=== PATIENT | female | born 1965 | race Caucasian/White ===

== ENCOUNTER 2017-03-02 09:16 | Emergency (ER) | payer OTHER ==
[~2017-03-02 09:16] MED LIST: ACET500T33 PO; HYDR-971 PO; ONDA4TAB7 PO
[2017-03-02] MEDS ORDERED: IV NORMAL SALINE 50ML 50 ML ONE (09:45)
[2017-03-02] MEDS ORDERED: cefTRIAXone SODIUM 1 GM VIAL IV ONE (09:46)
--- NOTE | 2017-03-02 09:48 | PHYS DOC ---
General Chief Complaint: FLANK PAIN Stated Complaint: FLANK PAIN Time Seen by MD: 09:35 Source: patient Exam Limitations: no limitations Problems: History of Present Illness Initial Comments Patient is a 51-year-old female who comes to the ED complaining of kidney stones. Patient states she has history of kidney stones, she states in the past they've been so large that required lithotripsy and basket retrieval. She follows with Dr. Leach, symptoms began this morning and have progressively worsened. Currently they're described as moderate at baseline with intermittent exacerbations to severe. Described as severe and crampy she denies urinary symptoms nausea or vomiting and no bowel changes. No fever chills sweats or myalgias no pre-arrival treatment. Timing/Duration: 1-3 hours Severity: moderate Modifying Factors: improves with other Associated Symptoms: other Allergies: Coded Allergies: codeine (Verified Adverse Reaction, Severe, Nausea and Vomiting, 06/08/15) Past Medical History Medical History: other (kidney stones, ovarian cyst) Surgical History: other (cholecystectomy, section, lithotripsy) Family History Significant Family History: no pertinent family hx Social History Smoker: non-smoker Alcohol: occasionally Drugs: none Review of Systems Constitutional: denies chills, denies diaphoresis, denies fever Respiratory: denies cough, denies shortness of breath Cardiovascular: denies chest pain, denies palpitations Gastrointestinal: see HPI, denies diarrhea, nausea, denies vomiting Genitourinary: see HPI Musculoskeletal: see HPI Psychiatric/Neurological: denies headache, denies numbness, denies paresthesia Physical Exam General Appearance: WD/WN, moderate distress Ear, Nose, Throat: hearing grossly normal, normal ENT inspection Neck: non-tender, supple Respiratory: normal breath sounds, no respiratory distress Cardiovascular: normal peripheral pulses, no edema Gastrointestinal: normal bowel sounds, non tender, soft Back: no CVA tenderness, no vertebral tenderness Extremities: normal range of motion, non-tender, normal inspection 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 CT is pending. PATIENT: JAISON DOMINGUEZ ACCOUNT: [id number] : 1965 LOCATION: ER AGE: 51 SEX: F EXAM STATUS: REG ER ORD. PHYSICIAN: ALEISHA LECHUGA DO REASON: L renal colic h/o stones PROCEDURE: CT ABDOMEN PELVIS WO CONTRAST Indication left flank pain. Axial images through the abdomen and pelvis were obtained. Examination was tailored for the detection of renal and/or ureteral calculi. Note is made of a previous exam 11/22/2015. The lung bases are clear. The liver and spleen appear unremarkable. Clips are noted in the gallbladder fossa. No adrenal pathology is seen and the pancreas appears unremarkable. There are single bilateral intrarenal calculi each measuring approximately 3 to 4 mm in greatest dimension. On the left there is mild hydronephrosis and hydroureter to the level of a 2 mm calculus in the mid portion of the ureter opposite the L4 vertebral body. No additional finding is seen in the abdomen or pelvis. IMPRESSION: 2 mm calculus in the mid left ureter with associated mild obstructive uropathy. Intrarenal calculi are additionally noted. PQRS Compliance Statement: One or more of the following individualized dose reduction techniques were utilized for this examination: 1. Automated exposure control 2. Adjustment of the mA and/or kV according to patient size 3. Use of iterative reconstruction technique DICTATED AND SIGNED BY: KEVIN ALAS MD DATE: 03/02/17 1023 CC: [facility]; ALEISHA LECHUGA DO ~ Labs unremarkable, urinalysis positive for blood zero evidence for possible infection. 1049: Patient rechecked, she reports that her pain is fully controlled. She does feel loopy but is pain free. She has a friend with her and I explained the departure instructions to both of them. She needs to follow-up at [facility] today or tomorrow to obtain urology referral has [facility] will not allow me to refer. They expressed agreement and understanding with the treatment plan see the departure instructions. Departure Time of Disposition: 10:44 Disposition: 01 HOME, SELF-CARE Diagnosis: 2mm L ureterolithiasis with hydronephrosis Condition: STABLE Patient Instructions: Kidney Stones, [id number] Additional Instructions: No driving or operating machinery while under the influence of sedative pain medications. Aggressive hydration to prevent dehydration. Pysi-mum-tgebtuq ibuprofen for baseline discomfort. Prescription: [place] 7.5 mg quantity 30, Flomax, Zofran ODT Take [place] with food to avoid GI upset. Take gpye-ksw-gydikpe stool softeners and increase fluids to avoid opiate associated constipation. [facility]-up [facility] today or tomorrow for urology referral. Return to the ED with new or changing symptoms. ALEISHA LECHUGA DO Mar 02, 2017 09:48
[2017-03-02] MEDS ORDERED: KETOROLAC 30 MG/ML VIAL. IV ONE (10:00)
[2017-03-02] MEDS ORDERED: HYDROmorphone PF 1 MG/ML DISP.SYRIN IV/SQ PRN (10:00)
[2017-03-02] MEDS ORDERED: ONDANSETRON PF 4 MG/2 ML VIAL. IV ONE (10:00)
[2017-03-02 10:08] LABS: BACTERIA,URINE 0 /HPF (0-FEW); BILIRUBIN,URINE NEG (NEG); CLARITY,URINE CLEAR; COLOR,URINE STRAW; GLUCOSE,URINE NEG (NEG); NITRITE,URINE NEG (NEG); RBC,URINE 0 /HPF (0-2); SQUAMOUS EPITHELIAL CELL,UR MOD /LPF; UROBILINOGEN,URINE 0.2 mg/dL (0.2 mg/dL); WBC,URINE 0 /HPF (0-4)
[2017-03-02 10:24] LABS: BASO # 0.1 x10^3/uL (0.0-0.2); BASO % 1 % (0-3); EOS # 0.1 x10^3/uL (0.0-0.7); EOS % 2 % (0-3); HEMATOCRIT 40.2 % (36.0-47.0); HEMOGLOBIN 13.9 g/dL (12.0-15.5); LYMPH # 1.8 x10^3/uL (1.0-4.8); LYMPH % 34 % (24-48); MEAN CORPUSCULAR HEMOGLOBIN 31 pg (25-35); MEAN CORPUSCULAR HGB CONC 35 g/dL (31-37); MEAN CORPUSCULAR VOLUME 90 fL (79-100); MONO # 0.3 x10^3/uL (0.0-1.1); MONO % 6 % (0-9); NEUT % 57 % (31-73); PLATELET COUNT 347 x10^3/uL (140-400); RED BLOOD COUNT 4.45 x10^6/uL (3.50-5.40); RED CELL DISTRIBUTION WIDTH 14.5 % (11.5-14.5); WHITE BLOOD COUNT 5.4 x10^3/uL (4.0-11.0)
--- NOTE | 2017-03-02 10:31 | RAD ---
Indication left flank pain. Axial images through the abdomen and pelvis were obtained. Examination was tailored for the detection of renal and/or ureteral calculi. Note is made of a previous exam 11/22/2015. The lung bases are clear. The liver and spleen appear unremarkable. Clips are noted in the gallbladder fossa. No adrenal pathology is seen and the pancreas appears unremarkable. There are single bilateral intrarenal calculi each measuring approximately 3 to 4 mm in greatest dimension. On the left there is mild hydronephrosis and hydroureter to the level of a 2 mm calculus in the mid portion of the ureter opposite the L4 vertebral body. No additional finding is seen in the abdomen or pelvis. IMPRESSION: 2 mm calculus in the mid left ureter with associated mild obstructive uropathy. Intrarenal calculi are additionally noted. PQRS Compliance Statement: One or more of the following individualized dose reduction techniques were utilized for this examination: 1. Automated exposure control 2. Adjustment of the mA and/or kV according to patient size 3. Use of iterative reconstruction technique
[2017-03-02 10:33] LABS: HEMOGLOBIN ISTAT 13.3 gm/dL
[2017-03-02] MEDS ORDERED: HYDR-965 PO (10:43)
[2017-03-02] MEDS ORDERED: ONDA4TAB10 PO (10:43)
[2017-03-02] MEDS ORDERED: TAMS0.4C97 PO (10:43)
[2017-03-02 12:30] VITALS: BP 118/79
== END 2017-03-02 11:20 | disposition home or self-care (01) ==
LOC: ER 09:16
DX: N13.2 Hydronephrosis with renal and ureteral calculous obstruction (principal); Z87.442 Personal history of urinary calculi; Z90.49 Acquired absence of other specified parts of digestive tract; Z98.890 Other specified postprocedural states; Z88.5 Allergy status to narcotic agent
CPT/HCPCS: 36415; 74176; 80047; 81001; 85025; 96365; 96375; 99285; J0696; J1170; J1885; J2405

== ENCOUNTER 2018-07-20 13:45 | Emergency (ER) | payer OTHER ==
[~2018-07-20] VITALS: Ht 157.5 cm; Wt 63.5 kg
[~2018-07-20 13:45] MED LIST changes: +HYDR-3165 PO; +HYDR-3166 PO; -HYDR-971 PO; +ONDA4TAB10 PO; +TAMS0.4C97 PO
[2018-07-20] MEDS ORDERED: IV NORMAL SALINE 1,000ML 1,000 ML IV ONE ×2 (14:05→15:00)
[2018-07-20] MEDS ORDERED: IV NORMAL SALINE 1,000 ML BAG ONE (14:05)
[2018-07-20 14:40] VITALS: BP 121/79
[2018-07-20 15:06] LABS: CALCIUM 7.6 mg/dL (8.5-10.1); CREATININE 0.7 mg/dL (0.6-1.0); GFR 88.2; POTASSIUM 3.9 mmol/L (3.5-5.1)
[2018-07-20 15:07] LABS: BASO # 0.1 x10^3/uL (0.0-0.2); BASO % 2 % (0-3); EOS # 0.1 x10^3/uL (0.0-0.7); EOS % 2 % (0-3); HEMATOCRIT 33.1 % (36.0-47.0); HEMOGLOBIN 11.2 g/dL (12.0-15.5); LYMPH # 0.6 x10^3/uL (1.0-4.8); LYMPH % 14 % (24-48); MEAN CORPUSCULAR HEMOGLOBIN 30 pg (25-35); MEAN CORPUSCULAR HGB CONC 34 g/dL (31-37); MEAN CORPUSCULAR VOLUME 89 fL (79-100); MONO # 0.3 x10^3/uL (0.0-1.1); MONO % 8 % (0-9); NEUT # 3.2 x10^3uL (1.8-7.7); NEUT % 75 % (31-73); PLATELET COUNT 293 x10^3/uL (140-400); RED BLOOD COUNT 3.74 x10^6/uL (3.50-5.40); RED CELL DISTRIBUTION WIDTH 15.3 % (11.5-14.5); WHITE BLOOD COUNT 4.2 x10^3/uL (4.0-11.0)
[2018-07-20] MEDS ORDERED: NAPR-683 PO (15:20)
--- NOTE | 2018-07-20 15:20 | PHYS DOC ---
Past History Past Medical History: No Pertinent History Past Surgical History: Colectomy, , Other Smoking: Non-smoker Alcohol Use: None Drug Use: None Adult General Chief Complaint Chief Complaint: VAGINAL BLEEDING HPI HPI Patient is a 53 year old female who presents with complaining of abnormal vaginal bleeding. Patient states she has had irregular periods for several months and had a usual menstruation 4 months ago and a short and light vaginal bleeding last month and for the last 2 weeks has had vaginal bleeding that getting a heavy for the last 4 days. Patient states she uses a pad every 2 or 3 hours and was seen at her primary care physician office today and sent to ER for more evaluation regarding abnormal vaginal bleeding and tachycardia because she does not have SR ACCOUNT EXECUTIVE at [facility] anymore. Patient denies chest pain, shortness of breath, nausea and vomiting, weight loss. She complaining of generalized weakness. Review of Systems Review of Systems Constitutional: Denies fever or chills [] Eyes: Denies change in visual acuity, redness, or eye pain [] HENT: Denies nasal congestion or sore throat [] Respiratory: Denies cough or shortness of breath [] Cardiovascular: No additional information not addressed in HPI [] GI: Denies abdominal pain, nausea, vomiting, bloody stools or diarrhea [] : Denies dysuria or hematuria . Reports abnormal vaginal bleeding[] Musculoskeletal: Denies back pain or joint pain [] Integument: Denies rash or skin lesions [] Neurologic: Denies headache, focal weakness or sensory changes [] Endocrine: Denies polyuria or polydipsia [] All other systems were reviewed and found to be within normal limits, except as documented in this note. Current Medications Current Medications Current Medications Medications (Trade) Dose Ordered Sig/Janine Start Time Stop Time Status Last Admin Dose Admin Sodium Chloride 1,000 ml @ 1,000 mls/hr 1X ONCE 07/20/18 15:00 07/20/18 15:59 07/20/18 14:03 1,000 MLS/HR Sodium Chloride (Iv Sodium Chloride 0.9% 1,000ml) 1,000 ml STK-MED ONCE 07/20/18 14:05 07/20/18 14:47 DC Allergies Allergies Allergies Coded Allergies Type Severity Reaction Last Updated Verified codeine Adverse Reaction Severe Nausea and Vomiting 06/08/15 Yes Physical Exam Physical Exam Constitutional: Well developed, well nourished, mild distress, non-toxic appearance, mild pallor. [] HENT: Normocephalic, atraumatic. Eyes: PERRLA, EOMI, conjunctiva normal, no discharge. [] Neck: Normal range of motion, no tenderness, supple, no stridor. [] Cardiovascular: Tachycardia, no murmur [] Lungs & Thorax: Bilateral breath sounds clear to auscultation [] Abdomen: Bowel sounds normal, soft, no tenderness, no masses, no pulsatile masses. [] Skin: Warm, dry, no erythema, no rash. [] Back: No tenderness, no CVA tenderness. [] Extremities: No tenderness, no cyanosis, no clubbing, ROM intact, no edema. [] Neurologic: Alert and oriented X 3, no focal deficits noted. [] Psychologic: Affect normal, judgement normal, mood normal. [] Current Patient Data Vital Signs Vital Signs Date Time Temp Pulse Resp B/P (MAP) Pulse Ox O2 Delivery O2 Flow Rate FiO2 07/20/18 14:40 98.1 111 20 99 Room Air Lab Results Laboratory Tests Test 07/20/18 14:03 White Blood Count 4.2 x10^3/uL (4.0-11.0) Red Blood Count 3.74 x10^6/uL (3.50-5.40) Hemoglobin 11.2 g/dL (12.0-15.5) L Hematocrit 33.1 % (36.0-47.0) L Mean Corpuscular Volume 89 fL (79-100) Mean Corpuscular Hemoglobin 30 pg (25-35) Mean Corpuscular Hemoglobin Concent 34 g/dL (31-37) Red Cell Distribution Width 15.3 % (11.5-14.5) H Platelet Count 293 x10^3/uL (140-400) Neutrophils (%) (Auto) 75 % (31-73) H Lymphocytes (%) (Auto) 14 % (24-48) L Monocytes (%) (Auto) 8 % (0-9) Eosinophils (%) (Auto) 2 % (0-3) Basophils (%) (Auto) 2 % (0-3) Neutrophils # (Auto) 3.2 x10^3uL (1.8-7.7) Lymphocytes # (Auto) 0.6 x10^3/uL (1.0-4.8) L Monocytes # (Auto) 0.3 x10^3/uL (0.0-1.1) Eosinophils # (Auto) 0.1 x10^3/uL (0.0-0.7) Basophils # (Auto) 0.1 x10^3/uL (0.0-0.2) Prothrombin Time 9.4 SEC (9.4-11.4) Prothrombin Time INR 0.9 (0.9-1.1) PTT 27 SEC (23-33) Sodium Level 142 mmol/L (136-145) Potassium Level 3.9 mmol/L (3.5-5.1) Chloride Level 109 mmol/L (98-107) H Carbon Dioxide Level 27 mmol/L (21-32) Anion Gap 6 (6-14) Blood Urea Nitrogen 10 mg/dL (7-20) Creatinine 0.7 mg/dL (0.6-1.0) Estimated GFR (Cockcroft-Gault) 88.2 Glucose Level 84 mg/dL (70-99) Calcium Level 7.6 mg/dL (8.5-10.1) L EKG EKG [] Radiology/Procedures Radiology/[place] [address] IMAGING REPORT Signed PATIENT: JAISON DOMINGUEZ ACCOUNT: [id number] : 1965 LOCATION: ER AGE: 53 SEX: F EXAM STATUS: REG ER ORD. PHYSICIAN: [facility] REASON: ABNORMAL VAGINAL BLEEDING PROCEDURE: US PELVIS W/TV EXAM: Pelvic sonogram. HISTORY: Heavy abnormal bleeding. TECHNIQUE: Transabdominal and transvaginal sonographic imaging of the pelvis was performed. COMPARISON: None. FINDINGS: The uterus measures 12.7 x 8.6 x 7.4 cm. The endometrial stripe is thickened, measuring 2 cm. There is a 1.2 cm anterior uterine fibroid to the right of midline. There are dominant bilateral ovarian follicles measuring 1.8 cm on the right and 2.2 cm on the left. There is no discrete surrounding ovarian parenchyma. There is no pelvic free fluid. IMPRESSION: 1. Prominent uterus size and small uterine fibroid. 2. Thickened endometrium, measuring 2 cm. 3. Bilateral dominant ovarian follicles. Electronically signed by: Dede Solano MD (07/20/2018 3:25 PM) [place] [id number] DICTATED AND SIGNED BY: DEDE SOLANO MD DATE: 07/20/18 1524 CC: [facility]; [facility]; JORY BRODY MD ~ Course & Med Decision Making Course & Med Decision Making Pertinent Labs and Imaging studies reviewed. (See chart for details) Dilution of patient in ER showed 53-year-old male patient presented to ER with abnormal premenopausal bleeding. Patient had hemoglobin of 11.2 and calcium of 7.9. Patient was not orthostatic. Patient treated with IV fluids with improvement of tachycardia. Patient instructed to follow-up with on-call SR ACCOUNT EXECUTIVE. Dragon Disclaimer Dragon Disclaimer This electronic medical record was generated, in whole or in part, using a voice recognition dictation system. Departure Departure: Impression: Primary Impression: Abnormal vaginal bleeding Additional Impressions: Anemia Hypocalcemia Premenopausal menorrhagia Disposition: HOME, SELF-CARE Condition: IMPROVED Referrals: [facility] (PCP) Patient Instructions: Abnormal Uterine Bleeding, Anemia, FAQs, Hypocalcemia, Adult Additional Instructions: Drink plenty of liquids Follow-up with on-call SR ACCOUNT EXECUTIVE up in 2 or 3 days regarding abnormal vaginal bleeding Dr Tyler Patel Return to ER if not getting better Take zgmr-bbk-kjustsy iron pills 325 mg 2- 3 times a day Scripts Naproxen (NAPROSYN) 500 Mg Tablet 500 MG PO BID for pain, #20 TAB Prov: JORY BRODY MD 07/20/18 Problem Qualifiers Additional Impressions: Anemia Anemia type: unspecified type Qualified Codes: D64.9 - Anemia, unspecified JORY BRODY MD Jul 20, 2018 15:20
--- NOTE | 2018-07-20 15:28 | RAD ---
EXAM: Pelvic sonogram. HISTORY: Heavy abnormal bleeding. TECHNIQUE: Transabdominal and transvaginal sonographic imaging of the pelvis was performed. COMPARISON: None. FINDINGS: The uterus measures 12.7 x 8.6 x 7.4 cm. The endometrial stripe is thickened, measuring 2 cm. There is a 1.2 cm anterior uterine fibroid to the right of midline. There are dominant bilateral ovarian follicles measuring 1.8 cm on the right and 2.2 cm on the left. There is no discrete surrounding ovarian parenchyma. There is no pelvic free fluid. IMPRESSION: 1. Prominent uterus size and small uterine fibroid. 2. Thickened endometrium, measuring 2 cm. 3. Bilateral dominant ovarian follicles. Electronically signed by: Dede Infante MD (07/20/2018 3:25 PM) [place] [id number]
== END 2018-07-20 15:33 | disposition home or self-care (01) ==
LOC: ER 13:45
DX: N93.8 Other specified abnormal uterine and vaginal bleeding (principal); D64.9 Anemia, unspecified; E83.51 Hypocalcemia; N92.4 Excessive bleeding in the premenopausal period; Z90.49 Acquired absence of other specified parts of digestive tract; Z98.890 Other specified postprocedural states; Z88.5 Allergy status to narcotic agent
CPT/HCPCS: 36415; 76830; 76856; 80048; 85025; 85610; 85730; 99284-25; J7030